=== PATIENT | female | born 1945 | race Caucasian/White ===

== ENCOUNTER → 2024-01-24 12:56 | Outpatient (REF) | payer OTHER, SELFPAY | LOC: DHCBC HW 12:56 | PROVIDERS: ATTENDING PHYSICIAN Nurse Practitioner; FAMILY PHYSICIAN Internal Medicine | DX: Z95.1 Presence of aortocoronary bypass graft (principal) | CPT/HCPCS: 93306 ==

== ENCOUNTER → 2024-02-20 14:26 | Outpatient (REF) | payer OTHER, SELFPAY | LOC: RAD 14:26 | PROVIDERS: ATTENDING PHYSICIAN Nurse Practitioner | DX: I82.409 Acute embolism and thrombosis of unspecified deep veins of unspecified lower extremity (principal); R22.42 Localized swelling, mass and lump, left lower limb | CPT/HCPCS: 76882 ==

== ENCOUNTER 2025-07-04 14:37 | Emergency (ER) | payer OTHER, SELFPAY ==
[2025-07-04 14:43] VITALS: BP 143/66
--- NOTE | 2025-07-04 17:19 | ED.GENMED ---
History of Present Illness
General
Chief Complaint: DVT/Possible Blood Clot
Time Seen by Provider: 07/04/25 17:13
History of Present Illness
History of Present Illness:
79-year-old female presents to the emergency department for evaluation of left leg edema, she states that earlier this week it 'blew up'. States that the day prior to onset of symptoms she did have some tactile fevers but these have since resolved.
She also notes that she dropped an object on her left middle toe and has been bandaging it due to irritation when walking with shoes. She is able to walk without pain. It is only painful when it is palpated. Not on anticoagulants
Past History
Past History
ED Past Medical History: Cancer, Hypercholesterolemia and Other (thrombocytopenia)
ED Past Surgical History: Gynecological (Hysterectomy) and Orthopedic (Bilateral knee replacements 2 years ago)
Social History
Tobacco: Non-smoker
Alcohol: None
Living: with family
Employment: Retired
Review of Systems
Review of Systems
Allergies reviewed?: Yes
All Other Systems: ROS reviewed and negative except as documented in HPI and ROS
Phy Exam
Physical Exam
Physical Exam:
GEN: Well appearing, NAD, WDWN
HEENT: Oral mucosa moist, no scleral icterus
Cardiac: Regular rate
Lung: No respiratory distress, no tachypnea
MSK: Diffuse edema of the left lower extremity below the knee circumferential erythema extending from the ankle to the mid calf. There is mild edema of the left foot but no overt erythema, there is a superficial wound to the left third toe with no
digital edema or purulent discharge
Skin: Good color, no pallor or jaundice, no rashes
Neuro: AO x3, moves all extremities freely
Psych: Calm, cooperative
Course
Orders/Labs/Results
Orders:
Orders
07/04/25 14:46
US Legs, Left [US Periph Venous LOWER Ext LT] Urgent
Comment:
Reason For Exam: swelling, calf pain
07/04/25 17:19
Cephalexin Monohydrate [Keflex] 500 mg PO NOW STA
Vital Signs
Initial and Last Documented VS:
Initial Vital Signs
Temp Pulse Resp BP Pulse Ox
98.3 F 95 18 143/66 95
07/04/25 14:43 07/04/25 14:43 07/04/25 14:43 07/04/25 14:43 07/04/25 14:43
Last Documented Vital Signs
Temp Pulse Resp BP Pulse Ox
98.2 F 83 16 127/50 98
07/04/25 17:34 07/04/25 17:34 07/04/25 17:34 07/04/25 17:34 07/04/25 17:34
MDM/Problems Addressed
MDM/Problems Addressed:
DVT study is negative, clinical findings compatible with acute cellulitis. She does have a wound to the left third toe however based on lack of associated erythema or purulent discharge this does not appear to be the clear source of infection.
Will start her on high-dose cephalexin however strictly encouraged to return to emergency department for IV antibiotics if worsening
*Pulse Oximetry
SaO2: 95
Oxygen Mode of Delivery: Room air
Patient hypoxic: no
*Critical Care Note
Total Time (30-74mins, 75-104mins- exclusive of procedures): Not Applicable
ED Attending Note
-
Portions of this chart may have been created with voice recognition software.� Occasional wrong word or��sound alike� substitutions may have occurred due to the inherent limitations of voice recognition software.
Discharge Plan
Departure
Patient Disposition: Home (Routine Discharge)
Date of Disposition: 07/04/25
Time of Disposition: 17:19
Patient with high blood pressure during this ER visit?: No
Discharge Problem:
Cellulitis of left leg
Instructions: Cellulitis (Skin Infection), Adult (DC)
Prescriptions:
New
cephalexin 500 mg capsule
500 mg PO QID 7 Days Qty: 28 0RF
No Action
furosemide [Lasix] 40 mg Tablet
40 mg PO DAILY
sotalol 80 mg Tablet
80 mg PO BID
sucralfate [Carafate] 1 gram Tablet
1 g PO AC
ferrous sulfate 325 mg (65 mg iron) Tablet
325 mg PO DAILY
warfarin 2 mg Tablet
6 mg PO QPM
metoprolol succinate [Toprol XL] 25 mg Tablet Extended Release 24 Hr
12.5 mg PO BID
rosuvastatin [Crestor] 10 mg Tablet
10 mg PO DAILY
oseltamivir 75 mg Capsule
75 mg PO BID Qty: 8 0RF
dexamethasone 6 mg tablet
6 mg PO DAILY Qty: 8 0RF
Interventions
Interventions:
*Risk Screen - Suicide Last Done: 07/04/25 14:43
*Nursing Disposition Last Done: 07/04/25 17:34
ED-Peripheral Vascular Assessment Last Done: 07/04/25 17:27
ED-Skin Assessment Last Done: 07/04/25 17:27
Discharge Date and Time
Discharge Date/Time: 07/04/25 17:36
Print Language: PORTUGUESE
[2025-07-04] MEDS: KEFLEX 500 MG PO (17:30)
[2025-07-04 17:34] VITALS: BP 127/50
== END 2025-07-04 17:36 | disposition home or self-care (01) ==
LOC: EMR 14:37
PROVIDERS: EMERGENCY PHYSICIAN Emergency Medicine; FAMILY PHYSICIAN Internal Medicine
DX: L03.116 Cellulitis of left lower limb (principal); E78.00 Pure hypercholesterolemia, unspecified; M79.605 Pain in left leg
CPT/HCPCS: 99284; 93971

== ENCOUNTER 2025-07-15 03:34 | Inpatient (IN) | payer OTHER, SELFPAY ==
[2025-07-14 20:42] VITALS: BP 149/84
[2025-07-14 21:01] VITALS: BP 119/57
[2025-07-14 21:09] LABS: Hematocrit 33.8 % (37.0-47.0); Hemoglobin 11.3 g/dL (12.0-16.0); Mean Corp Hgb Conc. 33.4 g/dL (33.0-37.0); Mean Corpuscular Volume 90.6 fL (81.0-99.0); Nucleated Red Blood Cells % 0 %; Platelet Count 103 10^3/uL (130-400); Red Cell Dist. Width 14.0 % (11.5-14.5)
[2025-07-14 21:18] LABS: ALT (SGPT) 16 U/L (0-35); AST (SGOT) 32 U/L (14-36); Albumin 3.7 g/dl (3.5-5.0); Alkaline Phosphatase 96 U/L (38-126); Blood Urea Nitrogen 17 mg/dl (7-17); Calcium 8.9 mg/dl (8.4-10.2); Carbon Dioxide 22 mmol/L (22-30); Chloride 108 mmol/L (98-107); Estimated Creatinine Clearance 71 ml/min; Glucose 102 mg/dl (70-99); Potassium 4.1 mmol/L (3.5-5.1); Sodium 137 mmol/L (135-145); Total Protein 7.0 g/dl (6.3-8.2); eGFR > 60.00
[2025-07-14 21:20] LABS: INR 4.13; PT 39.5 Sec (11.4-14.6)
[2025-07-14 21:21] LABS: APTT 61.7 Sec (23.4-35.0)
[2025-07-14 22:00] VITALS: BP 136/56
[2025-07-14 23:00] VITALS: BP 137/55
[2025-07-14 23:45] VITALS: BP 135/53
[2025-07-15] VITALS (9 sets, daily range): BP systolic 90–158; BP diastolic 46–76; BMI 28.0
[2025-07-15] MEDS: NSS 500 IV (01:16)
[2025-07-15] MEDS: PROTONIX IV 80 MG IV (01:17)
--- NOTE | 2025-07-15 01:51 | ED.GENMED ---
History of Present Illness
General
Chief Complaint: Rectal Bleeding
Source: patient
Exam Limitations: none
Time Seen by Provider: 07/14/25 23:45
Nursing documentation reviewed up to this point in time: agreed with
History of Present Illness
History of Present Illness:
Patient with history of colon cancer, colon resection and subsequent colostomy bag, presents to ED after noting 'black stool content' inside her colostomy bag, which has never occurred previously. Patient does take Coumadin. In addition, per
patient and caregiver, patient has had stool coming out of her rectum intermittently since most recent colonoscopy at [facility]. Denies dizziness or weakness. Denies shortness of breath. Denies trauma. Denies recent change in medications or diet.
Past History
Past History
ED Past Medical History: Cancer, Hypercholesterolemia and Other (thrombocytopenia)
ED Past Surgical History: Gynecological (Hysterectomy) and Orthopedic (Bilateral knee replacements 2 years ago)
Social History
Tobacco: Non-smoker
Alcohol: None
Living: with family
Employment: Retired
Review of Systems
Review of Systems
Allergies reviewed?: Yes
All Other Systems: ROS reviewed and negative except as documented in HPI and ROS
Constitutional: Reports no symptoms; Denies fever
Respiratory: Reports no symptoms; Denies trouble breathing
Cardiac: Reports no symptoms
ABD/GI: Reports black stools; Denies abdominal pain or vomiting
Musculoskeletal: Reports no symptoms
Skin: Reports no symptoms
Neurological: Reports no symptoms
Phy Exam
Physical Exam
Physical Exam:
Physical Exam
General: mild distress, not acutely ill. afebrile
Head: nc/at. eomi
Neck: supple. no meningeal signs.
Heart: s1/s2 regular rate and rhythm
Lungs: no acute respiratory distress. clear bilaterally
Abdomen: normal bowel sounds. not tender. rectal exam (FAUSTO Weiss, at bedside): minimal dark brown stool, heme positive
Neuro: alert and oriented x 3. no focal neurological deficits
Skin: no rash
Psychiatric: well kept. interactive and cooperative
Extremities: no edema. no calf tenderness.
Course
Orders/Labs/Results
Orders:
Orders
07/14/25 20:49
Cardiac Monitoring- Treatment ONCE
O2 Therapy [RESP] Urgent
Titrate/Wean O2 to maintain O2 sat greater than (%): 93
Special Instructions: MAINTAIN CONTINOUS O2 SATS > OR = 93%
Pulse Ox/spot Check [RESP] Urgent
Quantity: 1
Special Instructions: ON ROOM AIR
07/14/25 20:51
Type+Screen Urgent
Complete Blood Count/With Diff Urgent
Comprehensive Metabolic Panel Urgent
PTT Urgent
Prothrombin Time Urgent
07/15/25 00:57
IV Insert/Care/Rem.- Treatment PRN
Pantoprazole 80 mg/100 ml Nss [Protonix] 80 mg in 100 ml IV NOW
Pantoprazole [Protonix IV] 80 mg IV NOW STA
07/15/25 00:58
0.9% Sodium Chloride 500 ml [Nss] 500 ml IV BOLUS
07/15/25 03:13
Admit/Transfer Patient As Directed
Co-Sign Provider:
Level of Care: Inpatient admission
Assign to:: Telemetry
Physician / Group: Camacho
Diagnosis: GI Bleed
Reason for Telemetry: Arrhythmia
Date to Stop Telemetry: 07/18/25
Time to Stop Telemetry: 11:00
Reason for Hospitalization: GI Bleed
Expected length of stay greater than two midnights?: Yes
ELOS- Estimated Length of Stay in days: 2
I certify the patient meets the requirements for IP care: Yes
PRN Pain Medication Management As Directed
May give lesser potent ordered pain med per pt: Yes
preference::
Protocol:: Medication orders for pain may be administered in a
manner that supports deferring to patient preference
when the pt is:
- Requesting an ordered lesser potent pain medication.
Least to most potent pain medications are defined
as: acetaminophen < NSAID < tramadol < opioids
(morphine, oxycodone, hydromorphone).
- Requesting a lesser dose of the same medication IF
ORDERED.
- Requesting a less intrusive route of administration
if both routes are prescribed by the provider (PO <
IV).
07/15/25 03:14
Code Status As Directed
Resuscitation Status: Full Code
07/15/25 04:07
0.9% Sodium Chloride 1000 ml [Nss] 1,000 ml IV 100 mls/hr
Acetaminophen [Tylenol] 650 mg PO Q4HPRN PRN
07/15/25 04:07
Consult Notification Routine
Specialty to Notify: Gastroenterology
GASTROINTESTINAL CONSULT Routine
Consulting Provider: Ana Farley
Was physician already notified: No
Reason for consult: GI Bleed
Activity As Directed
Activity Level: Bedrest
I/O [Intake/ Output] As Directed
Frequency: Per unit guidelines
Ostomy Care As Directed
Pneumatic Compression Sleeves As Directed
Type: Knee high
Vital Signs As Directed
Frequency: Per unit guidelines
Weight As Directed
Frequency: Daily
Oxygen Therapy [O2 Therapy] [RESP] Routine
Titrate/Wean O2 to maintain O2 sat greater than (%): 94
DX Deep Vein Thrombosis Video Routine
07/15/25 Breakfast
NPO
Allow oral meds: Yes
Allow clear liquids: Sips of Clears
07/15/25 06:07
Basic Metabolic Panel IN AM
Complete Blood Count/No Diff IN AM
Prothrombin Time IN AM
07/15/25 08:00
Metoprolol Xl [Toprol Xl] 25 mg PO BID
07/15/25 11:54
HH [H&H] Q6H
07/15/25 12:00
Pantoprazole [Protonix IV] 40 mg IV Q12H
07/15/25 18:07
HH [H&H] Q6H
07/15/25 22:07
HH [H&H] Q6H
07/16/25 06:00
Prothrombin Time IN AM
07/17/25 06:00
Prothrombin Time IN AM
07/18/25 06:00
Prothrombin Time IN AM
07/18/25 11:00
DC Protocol for Telemetry ONCE
Abnormal Lab Results
07/14/25
20:51
RBC 3.73 L 10^6/uL
(4.20-5.40)
Hgb 11.3 L g/dL
(12.0-16.0)
Hct 33.8 L %
(37.0-47.0)
Plt Count 103 L 10^3/uL
(130-400)
Absolute Lymphs (auto) 0.7 L 10^3/uL
(1.2-3.4)
Neutrophils % 81.0 H %
(42.2-75.2)
Lymphocytes % 10.4 L %
(20.5-51.1)
PT 39.5 H Sec
(11.4-14.6)
APTT 61.7 H Sec
(23.4-35.0)
Chloride 108 H mmol/L
(98-107)
Glucose 102 H mg/dl
(70-99)
Total Bilirubin 1.4 H mg/dl
(0.2-1.3)
07/14/25 20:51
07/14/25 20:51
Vital Signs
Initial and Last Documented VS:
Initial Vital Signs
Temp Pulse Resp BP Pulse Ox
97.8 F 92 18 149/84 97
07/14/25 20:42 07/14/25 20:42 07/14/25 20:42 07/14/25 20:42 07/14/25 20:42
Last Documented Vital Signs
Temp Pulse Resp BP Pulse Ox
98.6 F 81 16 154/68 96
07/15/25 14:28 07/15/25 14:28 07/15/25 14:28 07/15/25 14:28 07/15/25 14:28
MDM/Problems Addressed
MDM/Problems Addressed:
Suspected upper GI bleed, with supratherapeutic INR. Otherwise patient remains afebrile, hemodynamically stable, and nontoxic-appearing.
H/H stable. Blood transfusion consent on the chart. Started on protonix gtt.
*Pulse Oximetry
SaO2: 98
Oxygen Mode of Delivery: Room air
Patient hypoxic: no
*Critical Care Note
Total Time (30-74mins, 75-104mins- exclusive of procedures): Not Applicable
ED Attending Note
-
Portions of this chart may have been created with voice recognition software.� Occasional wrong word or��sound alike� substitutions may have occurred due to the inherent limitations of voice recognition software.
Discharge Plan
Departure
Patient Disposition: Admit
Date of Disposition: 07/15/25
Time of Disposition: 02:03
Admit to: Telemetry
Presentation/result/management discussed w/ accepting MD/DO: Hospitalist
Discharge Problem:
GI bleed, Supratherapeutic INR
Interventions
Interventions:
*Risk Screen - Suicide Last Done: 07/14/25 20:42
*General Assessment Last Done: 07/14/25 20:42
*Neglect/Abuse Screening Last Done: 07/14/25 20:42
*ED- Fall Risk Assessment Last Done: 07/14/25 20:42
*ED COVID-19 Vaccine History Last Done: 07/14/25 20:42
*Nursing Disposition Last Done: 07/15/25 04:04
PX-Jqyvbb-Fyeirkhvze Assessment Last Done: 07/14/25 21:00
ED- Cardiac Assessment Last Done: 07/14/25 21:00
ED- Pulmonary Assessment Last Done: 07/14/25 21:00
Discharge Date and Time
Discharge Date/Time: 07/15/25 04:05
[2025-07-15] MEDS: PROTONIX 100 IV (01:56)
--- NOTE | 2025-07-15 03:16 | HPS.HSE ---
Family Physician
-
Family Physician: Yomi Ulrich
Chief Complaint
-
Black Stool
History of Present Illness
Patient is a 79y F with PMH significant for rectal cancer s/p surgery, chemo and XRT who presents to ED complaining of black stool in ostomy and per rectum for the past two days. Patient states that she initially noted a small amount of black
stool per rectum on Monday. She typically does not pass stool at all per rectum. She checked her ostomy and stool within was also loose and black. She denies any abdominal pain, N/V, lightheadedness, dizziness, dyspnea, etc. Patient had a second
episode of black stool per rectum today and stool in ostomy continued to be dark-appearing. She presented to the ED for further evaluation.
Patient is on Coumadin for A-Fib and took her last dose on Monday.
Patient was prescribed cephalexin for suspected cellulitis last week. She states that she took a single dose and then stopped because she 'did not like it'. The LLE discomfort / redness that she initially complained of at that time has since
improved.
Medical History
Past Medical History
Past Medical History: Reports Other
Additional Past Medical History:
Rectal Cancer s/p Surgery, Chemo, XRT (2021)
Paroxysmal Atrial Fibrillation
Chronic Thrombocytopenia
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
Aortic Stenosis
ASCVD
Skin Cancer
Past Surgical History: Reports Other
Additional Past Surgical History:
Partial Colectomy / Ileostomy Formation (2021)
R ACW Chemoport
CABG x 1
[facility]
Bilateral TKA
Mohs Surgery
Social History
Tobacco: Former Smoker (Quit smoking in 2012.)
Alcohol: None
Drug: None
Family History
Family History: Not pertinent
Allergies / Home Medications
Allergies reflects when Allergies were last updated in [facility].
Home Medications with original date entered in [facility]
Allergy/Medication List:
Allergies
Allergy/AdvReac Type Severity Reaction Status Date / Time
adhesive Allergy itches Verified 07/04/25 14:43
Home Medications
metoprolol succinate 25 mg tablet,extended release 24 hr 25 mg PO BID 07/15/25
rosuvastatin 10 mg tablet 10 mg PO DAILY 07/15/25
warfarin 2 mg tablet 2 mg PO . DIRECTED 07/15/25
Review of Systems
-
History Source: Patient
A 12 point ROS was completed and negative except as noted: Yes
Constitutional: Denies Fever, Fatigue or Chills
Respiratory: Denies Cough or Trouble Breathing
Cardiac: Denies Chest Pain or Palpitations
Abdomen/GI: Reports Black Stools; Denies Abdominal Pain, Nausea or Vomiting
Musculoskeletal: Reports Edema (chronic)
Neurological: Denies Dizzy or Headache
Psych: Denies Depression or Anxiety
Physical Exam
Vital Signs
Vital Signs
Temp Pulse Resp BP Pulse Ox
97.8 F 72 18 129/46 97
07/14/25 20:42 07/15/25 02:57 07/15/25 02:57 07/15/25 02:00 07/15/25 02:45
Physical Exam
General: Other (79y F in no acute distress.)
HEENT: Moist mucous membranes and PERRLA
Respiratory: Clear; No Wheezes or Rales
Cardiac: S1/S2, Regular Rhythm and Murmur (II/ VANESSA)
GI: Soft, Non Tender, Non Distended, Normal Bowel Sounds and Other (R sided ostomy in place with soft, non-tender parastomal hernia. Opaque device with gas, no significant stool contents appreciated.)
Musculoskeletal: No Clubbing, No Cyanosis and Other (Chronic, brawny bilateral LE edema. Mild erythema. No tenderness.)
Neuro: AO x 3
Laboratory Results
-
07/14/25 20:51
07/14/25 20:51
Laboratory Results
PT 39.5 Sec (11.4-14.6) H 07/14/25 20:51
INR 4.13 07/14/25 20:51
APTT 61.7 Sec (23.4-35.0) H 07/14/25 20:51
Total Bilirubin 1.4 mg/dl (0.2-1.3) H 07/14/25 20:51
AST 32 U/L (14-36) 07/14/25 20:51
ALT 16 U/L (0-35) 07/14/25 20:51
Alkaline Phosphatase 96 U/L (38-126) 07/14/25 20:51
Impression/Plan
-
A/P: Patient is a 79y F with PMH significant for A-Fib, aortic stenosis and history of rectal cancer who presents to ED complaining of black stool per rectum and in ostomy x 2 days.
GI Bleeding
- Admit for further evaluation and treatment.
- Melena noted in ostomy and per rectum - rectal stool output quite unusual per patient.
- BP stable. No lightheadedness, dizziness, dyspnea. No abdominal pain, N/V.
- IV PPI BID, IVF support.
- Follow serial H&H and transfuse if needed.
- GI evaluation for additional recommendations / possible endoscopic examination.
- Follow for any new / worsening bleeding.
- Hold Coumadin (see below).
Coumadin Coagulopathy
- INR today is 4.13. ? elevated due to abx use (though patient states she took only one dose).
- Hold Coumadin. Follow INR daily.
- Vit K if recurrent bleeding or persistent INR elevation off of Coumadin.
Paroxysmal Atrial Fibrillation
- Stable. Continue metoprolol with holding parameters.
- Hold Coumadin as noted above.
ASCVD
Aortic Stenosis
- Stable. s/p CABG x 1 in the past. No chest pain / dyspnea.
- s/p tissue AVR.
History of Rectal Cancer
- s/p surgery, chemo and XT at [place] in 2021. Details are not entirely clear.
- Chest wall port remains in place - though not used in quite some time.
DVT Prophylaxis: SCDs
Code Status: Full
--- NOTE | 2025-07-15 04:25 | PTCARENOTE ---
Pt arrived onto floor @0425. Pt AAOx3 and able to walk into room with minimal assistance. Pt with no complaints of pain or SOB at this time. Pt oriented to room and call hauser; will continue to monitor
[2025-07-15] MEDS: NSS 1000 IV (05:52)
[2025-07-15] MEDS: BENADRYL 12.5 MG IV (06:18)
[2025-07-15 06:52] LABS: INR 3.99; PT 38.5 Sec (11.4-14.6)
[2025-07-15 07:11] LABS: Blood Urea Nitrogen 15 mg/dl (7-17); Calcium 8.2 mg/dl (8.4-10.2); Carbon Dioxide 25 mmol/L (22-30); Chloride 110 mmol/L (98-107); Estimated Creatinine Clearance 69 ml/min; Glucose 85 mg/dl (70-99); Potassium 4.0 mmol/L (3.5-5.1); Sodium 139 mmol/L (135-145); eGFR > 60.00
[2025-07-15 07:34] LABS: Hematocrit 30.7 % (37.0-47.0); Hemoglobin 10.3 g/dL (12.0-16.0); Mean Corp Hgb Conc. 33.6 g/dL (33.0-37.0); Mean Corpuscular Volume 89.8 fL (81.0-99.0); Red Cell Dist. Width 14.0 % (11.5-14.5)
--- NOTE | 2025-07-15 08:04 | CON.GI ---
Addendum entered and electronically signed by Ana Navarro Do, MD 07/15/25 10:39:
I saw and evaluated the patient. I reviewed the resident�s note and agree with findings and plan as documented in the resident�s note.
Nga is a 79yo W lives independently with remote h/o Stage 1 rectal cancer diagnosed at age 65 s/p chemoXRT then colectomy with ileostomy at [facility] 2012, cirrhosis and bioprosthetic AVR on coumadin who presents for black blood in stoma output
that started Monday. Reports normal stoma output. She denies any triggers. There is no associated abd pain, reflux, heartburn, N/V, change in diet or new meds. Her INR goal is 2.5-3.5 but recently running slightly higher. Denies NSAID use.
Vitals stable not tachy or hypotensive. Exam pale appearing, NTTP, RLQ stoma with stool, RRR. Labs show mild pancytopenia. Hbg baseline 12 on admission 11 to 10.3 today. EGD/colon done last 5yr ago at [facility]. Records not available
Impression
- Black stools in ostomy with anemia
Ddx includes PUD, stoma irritation or portal HTN gastropathy or GAVE
Variceal bleeding is consideration but less likely given her hemodynamic stability
- Supratherapeutic INR
- Mild pancytopenia
- Cirrhosis
Unclear etiology
- H/o Stage I rectal ca s/p chemoXRT followed by colectomy with ileostomy at [facility]
- Bioprosthetic AVR
- CABG
- pAfib
Recommendations
- Adv to CLD
- C/w protonix gtt
- Serial H/H
- 2 large bore IV
- Monitor stool output
- Add on iron panel and vit B12,folate
- Records request from [facility] for her last EGD/colonosocpy there 5yrs ago
- Hold coumadin goal INR <1.7 for EGD and enteroscopy through stoma. If INR <2.5 and she is high cardiac risk can consider heparin gtt to bridge while inpatient
Will follow with you
Original Note:
Consultation
-
Date/Time Consultation Requested: 07/15/2025
Date/Time Consultation Performed: 07/15/2025
Requesting Provider: Cosmo Sauer
Performing Provider: Ana Farley; Federico Taylor
Reason for Consultation: GI bleed
Medical History
Chief Complaint / HPI
Chief Complaint: GI bleed
History of Present Illness:
HPI
79 yo F PMH of rectal cancer s/p surgery with R ostomy, chemotherapy, radiotherapy (2013 @ [facility]) p/w black stool with some red blood in ostomy and per rectum for 2 days duration.
She also noticed some red-mixed stool per rectum and ostomy yesterday.
She reports that she does not typically have any output per rectum. This has never happened before.
She denies any abdominal pain. She was watching TV when this occurred.
She denies nausea or vomiting
she denies dizziness. She denies any new dyspnea (she reports at baseline that she is a little short of breath with walking around due to hernia near ostomy bag and aortic valve replacement).
She recently had LLE cellulitis ~1 week ago and took 2 pills of cephalexin, which she stopped on her own because she experienced diarrhea (by increased ostomy output).
She otherwise denies any changes in bowel habits, travel.
During her admission, she has kept NPO and she says her last meal was Monday evening. She has not noticed significant ostomy output during her admission.
In the ED, heme-occult test was positive per ED documentation. Patient declined a repeat heme-occult but is okay with inspection and palpation of perianal region. FAUSTO riley
She reports being told that she has a rectovaginal fistula, but denies any vaginal discharge or bleeding.
Other ROS: she denies chest pain, acute dyspnea, headaches, focal weakness.
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
PSH: partial colectomy and ileostomy ~2012. Mohs procedure, CABG procedure, bilateral knee replacement.
She follows with [facility] oncology but reports that 'it has been a few years'
Past Medical History
Past Medical History: Arrhythmias, Cancer and Other (see HPI)
Past Surgical History: Bowel Resection, Cardiac, Orthopedic and Other (see HPI)
Social History
Tobacco: Former Smoker (quit in 2012)
Alcohol: Former (quit in 2012)
Drug: None
Living: Alone
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
Family History
Family History: Cancer (mother: skin cancer, ~40 years ago)
Allergies / Home Medications
Allergy/AdvReac Type Severity Reaction Status Date / Time
adhesive Allergy itches Verified 07/04/25 14:43
�Medication �Instructions �Recorded
metoprolol succinate 25 mg 25 mg PO BID 07/15/25
tablet,extended release 24 hr
rosuvastatin 10 mg tablet 10 mg PO DAILY 07/15/25
warfarin 2 mg tablet 2 mg PO . DIRECTED 07/15/25
Review of Systems
-
History Source: Patient
Constitutional: Reports No Symptoms
EENT: Reports No Symptoms
Respiratory: Reports Trouble Breathing (no new dyspnea, at baseline she reports some dyspnea when walking or moving quickly)
Cardiac: Reports No Symptoms
Abdomen/GI: Reports Bloody Stools, Black Stools and Other (denies nausea, vomiting, denies abdominal pain)
: Reports No Symptoms
Skin: Reports Other (some LLE pain resolving cellulitis)
Neurological: Reports No Symptoms and Other (denies dizziness)
Endocrine: Reports No Symptoms
Hematologic/Lymphatic: Reports No Symptoms
Vital Signs
Temp Pulse Resp BP Pulse Ox
98.2 F 90 16 158/76 97
07/15/25 07:59 07/15/25 07:59 07/15/25 07:59 07/15/25 07:59 07/15/25 07:59
Physical Exam
Exam
General: No Apparent Distress
HEENT: Anicteric
Respiratory: Clear
Cardiac: Regular Rhythm and Murmur (holosystolic murmur loudest near left parasternum; no radiation to carotids appreciable on my exam)
GI: Non Tender, Normal Bowel Sounds and Other (R ostomy bag present )
Rectal: Other (Patient was heme positive in ED per documentation; she declined a repeat hemo-occult test to me; she consented to an inspection and palpation of perianal region: possible some dried redness visualized )
Genito-urinary: No Costovertebral Tender
Musculoskeletal: Other (some redness on LLE, attributable to cellulitis last week. No tenderness to palpation of calves)
Skin: Warm
Neuro: AO x 3, No Motor Deficits and Other (no asterixis on my exam)
Psych: Calm
Results
VS:
143/66; HR 93; RR 16; T 97.8; SpO2 97%
WBC 3.7 10^3/uL (4.8-10.8) L 07/15/25 06:07
Hgb 10.3 g/dL (12.0-16.0) L 07/15/25 06:07
Hgb Cancelled 07/15/25 06:07
Hct 30.7 % (37.0-47.0) L 07/15/25 06:07
Hct Cancelled 07/15/25 06:07
MCV 89.8 fL (81.0-99.0) 07/15/25 06:07
Plt Count 103 10^3/uL (130-400) L 07/14/25 20:51
Absolute Neuts (auto) 5.1 10^3/uL (1.4-6.5) 07/14/25 20:51
PT 38.5 Sec (11.4-14.6) H 07/15/25 06:07
INR 3.99 07/15/25 06:07
APTT 61.7 Sec (23.4-35.0) H 07/14/25 20:51
Sodium 139 mmol/L (135-145) 07/15/25 06:07
Potassium 4.0 mmol/L (3.5-5.1) 07/15/25 06:07
Chloride 110 mmol/L (98-107) H 07/15/25 06:07
Carbon Dioxide 25 mmol/L (22-30) 07/15/25 06:07
BUN 15 mg/dl (7-17) 07/15/25 06:07
Creatinine 0.6 mg/dL (0.6-1.0) 07/15/25 06:07
Calcium 8.2 mg/dl (8.4-10.2) L 07/15/25 06:07
Total Bilirubin 1.4 mg/dl (0.2-1.3) H 07/14/25 20:51
AST 32 U/L (14-36) 07/14/25 20:51
ALT 16 U/L (0-35) 07/14/25 20:51
Alkaline Phosphatase 96 U/L (38-126) 07/14/25 20:51
Diagnostic Image Results:
Prior GI Procedures:
EGD:
12/06/2018 - grade 1 varices at GE junction
Colonoscopy:
02/13/2013 -
Impression: - Internal hemorrhoids.
- Diverticulosis
- Likely malignant tumor in the rectum. Biopsied.
Path report: Mas rectum: Adenocarcinoma, well to moderately differentiated arising in a severely dysplastic villous adenoma, fragments of
around 2012, she had partial colectomy + ostomy with chemo and radiation at [facility]. She was told around this time she has a rectovaginal fistula that did not require surgical intervention. She was told that the ostomy is connected superior to the
rectovaginal fistula, the rectum is a closed loop.
Assessment / Plan
-
In summary, 79 yo F PMH of rectal adenocarcinoma s/p partial colectomy with R ostomy bag (2012) who is p/w melena and hematochezia for 2 days duration.
# Melena, hematochezia
- VS stable, BP within normal limits, not tachycardic
- she is able to ambulate to the bathroom with no issues; denies dizziness
- Heme positive rectal exam per ED documentation
- Hgb trend is 11.3 -> 10.3; likely dilutional since all 3 cell lines had decreased and she is receiving 100mL/hr NS.
- The ddx for melena and hematochezia is broad and includes UGIB and LGIB etiologies: malignancy, varices, coagulopathy-induced bleeding. Other etiologies, diverticular bleed, ulcer, infectious colitis.
- For this patient, most likely explanation may be related to a combination of malignancy (possible recurrence), variceal bleeding (documented varcies in 2019 EGD, and cirrhosis) and/or coagulopathy (INR of 4, where goal is likely 2-3).
- Her elevated INR may be also related to ongoing cirrhosis (hepatic dysfunction, warfarin metabolized by liver); agree with holding warfarin given supratherapeutic INR.
- Of note, the melena and hematochezia per rectum, when she does not typically experience may suggest recurrence of malignancy and/or new fistula formation?
- She did also take recent antibiotics for cellulitis (though only 2 pills), and experienced diarrhea, which has resolved per her because she stopped taking the pills after 1 day. The short duration of abx and absence of ongoing diarrhea points away
from a possible c.diff.
- No travel or new diets point away from a possible infectious etiology of hematochezia.
- An ulcer etiology would likely present with abdominal pain, which she denies.
Plan:
- Recommendations are not final until discussed with Dr. Farley, GI attg
- Trend H&H
- Trend INR
- Continue IV pantoprazole
- Continue IV normal saline, ensure 2x IV access
- Colonoscopy (via ostomy?) and EGD is appropriate because melena/hematochezia can point to UGIB or LGIB; however, today is day #2 for warfarin being held. Her INR is 4, above target and likely not suitable for an endoscopic intervention at this time
- For these reasons, consider adding her diet back to clear liquids, monitor ostomy/rectal stool output and any vomiting.
- In the interim, if endoscopic intervention is deemed not appropriate today, can consider a CT A/P w oral and IV contrast to visualize gastrointestinal tract given surgical history and new rectal stool output (Cr is 0.6).
-
-
Thank you for consultation and allowing me to participate in the patient's care. Please call the product demonstrator GI physician during the after hours with any questions or concerns.
[2025-07-15 09:01] LABS: Platelet Count 86 10^3/uL (130-400)
[2025-07-15] MEDS: TOPROL XL 25 MG PO ×2 (09:15→20:23)
--- NOTE | 2025-07-15 11:05 | CM ---
CM reviewed chart, patient seen bedside, initial assessment completed.
Patient is a 79 year old Female with PMH significant for rectal cancer s/p surgery, chemo and XRT who presents to ED complaining of black stool in ostomy and per rectum for the past two days.
Patient resides independently in a one level home, no steps to enter. Patient denies use of DME, reports current with [facility], will send [facility] referral in [facility]. Patient denies SNF hx. PCP Yomi Ulrich, Pharmacy [facility], confirms
prescription coverage. Patient denies insecurities at home. CM will continue to follow for all discharge planning needs.
Plan; home with [facility]
[2025-07-15] MEDS: CITROMA 300 ML PO (11:12)
[2025-07-15] MEDS: PROTONIX IV 40 MG IV (11:26)
[2025-07-15 11:33] LABS: Iron 78 ug/dl (37-170)
[2025-07-15 11:42] LABS: Total Iron Binding Capacity 289 ug/dl (265-497)
[2025-07-15 12:08] LABS: Ferritin 42.9 ng/ml (11.1-264.0)
[2025-07-15 12:09] LABS: Hematocrit 30.9 % (37.0-47.0); Hemoglobin 10.6 g/dL (12.0-16.0)
[2025-07-15 12:39] LABS: Folate 16.6 ng/ml (2.76-20); Vitamin B12 749 pg/ml (239-931)
--- NOTE | 2025-07-15 14:11 | W.PN.HOSP.TC ---
Today's Communication/Plan
-
Assessment / Plan
Assessment / Plan
General: No Apparent Distress, Comfortable and Conversant
HEENT: NormoCephalic, Moist mucous membranes, Atraumatic
Respiratory: Clear and Non Labored Respirations
Cardiac: S1/S2 and Regular Rhythm; No Rub or Gallop
GI: Soft, Non Tender, ostomy in place with gas but no stool output
Musculoskeletal: No Edema, no deformity
Skin: Warm and dry
: NO Naylor
Neuro: Awake, Alert, Nonfocal/grossly intact
Psych: Calm and Intact Judgment/Insight
Ms. Chamberlain is a 79-year-old female with medical history of stage I rectal cancer (diagnosed at age 65, status post chemoradiation, colectomy end ileostomy at [place] 2012) cirrhosis (secondary to radiation), paroxysmal A-fib (on warfarin),
bioprosthetic AVR, CAD (status post CABG), and thrombocytopenia who presented with dark stools from her ostomy and per rectum for 2 days prior to arrival. She does not usually pass stool per rectum but when she did notice that she also noticed
black stools in her ostomy. She denies pain or dizziness. Her initial hemoglobin was 11.3 which is slightly below her baseline of around 13. Her INR was supratherapeutic at 4.13. She has remained hemodynamically stable. She has been admitted
for further evaluation and management.
Suspected GI bleeding:
- Dark stools from ostomy and rectum, hemoglobin slightly below baseline
- Clear liquid diet for now
- Holding warfarin due to supratherapeutic INR of 4.13
- IV PPI twice daily
- Monitor hemoglobin levels, transfuse if needed for hemoglobin less than 7.0 or brisk bleeding
- GI following, will plan EGD enteroscopy through stoma once INR less than 1.7
Paroxysmal A-fib:
- Currently rate controlled continue home metoprolol succinate 25 mg p.o. twice daily
- Holding home warfarin due to supratherapeutic INR and suspected GI bleeding
DVT prophylaxis: SCDs while holding warfarin
CODE STATUS: Full code
Total time spent on today's encounter was 54 minutes
Anticipated Discharge: > 48 hours
Subjective/Interval History
-
Date of Service: July 15, 2025
Patient was seen and examined at bedside this morning. No discomfort. Hemodynamic stable. Holding warfarin due to black stools and ostomy with anemia.
Objective Data
-
Labs:
Laboratory Results
07/15/25 07/15/25 07/15/25
06:07 06:07 06:07
WBC 3.7 L
Hgb Cancelled 10.3 L
Hct Cancelled 30.7 L
Plt Count 86 L
PT 38.5 H
INR 3.99
Sodium 139
Potassium 4.0
Chloride 110 H
Carbon Dioxide 25
BUN 15
Creatinine 0.6
Glucose 85
Calcium 8.2 L
07/15/25 07/15/25 07/16/25
11:54 18:07 00:07
WBC
Hgb 10.6 L Pending Pending
Hct 30.9 L Pending Pending
Plt Count
PT
INR
Sodium
Potassium
Chloride
Carbon Dioxide
BUN
Creatinine
Glucose
Calcium
Vital Signs:
Vital Signs
Temp Pulse Resp BP Pulse Ox
98.2 F 90 16 158/76 97
07/15/25 07:59 07/15/25 09:15 07/15/25 07:59 07/15/25 09:15 07/15/25 07:59
Review of Systems
-
History Source: Patient
All other systems: Reviewed and negative
Physical Exam
-
General: No Apparent Distress
[2025-07-15] MEDS: NSS IV (14:41)
--- NOTE | 2025-07-15 14:42 | PTCARENOTE ---
patient drinking magnesium citrate thus, putting out more output from ostomy. per patient, stool is black.
[2025-07-15 20:18] LABS: Hematocrit 33.2 % (37.0-47.0); Hemoglobin 11.2 g/dL (12.0-16.0)
[2025-07-16] VITALS (7 sets, daily range): BP systolic 104–138; BP diastolic 50–62; BMI 27.7
[2025-07-16] MEDS: PROTONIX IV 40 MG IV ×3 (00:02→23:46)
[2025-07-16] MEDS: TOPROL XL 25 MG PO ×2 (08:16→20:42)
[2025-07-16 08:42] LABS: Hematocrit 32.2 % (37.0-47.0); Hemoglobin 10.6 g/dL (12.0-16.0); Mean Corp Hgb Conc. 32.9 g/dL (33.0-37.0); Mean Corpuscular Volume 90.2 fL (81.0-99.0); Nucleated Red Blood Cells % 0 %; Platelet Count 104 10^3/uL (130-400); Red Cell Dist. Width 14.3 % (11.5-14.5)
[2025-07-16 08:46] LABS: INR 3.36; PT 34.3 Sec (11.4-14.6)
--- NOTE | 2025-07-16 13:56 | W.PN.HOSP.TC ---
Today's Communication/Plan
-
Assessment / Plan
Assessment / Plan
General: No Apparent Distress, Comfortable and Conversant
HEENT: NormoCephalic, Moist mucous membranes, Atraumatic
Respiratory: Clear and Non Labored Respirations
Cardiac: S1/S2 and Regular Rhythm; No Rub or Gallop
GI: Soft, Non Tender, ostomy in place with gas but no stool output
Musculoskeletal: No Edema, no deformity
Skin: Warm and dry
: NO Naylor
Neuro: Awake, Alert, Nonfocal/grossly intact
Psych: Calm and Intact Judgment/Insight
Ms. Chamberlain is a 79-year-old female with medical history of stage I rectal cancer (diagnosed at age 65, status post chemoradiation, colectomy end ileostomy at [place] 2012) cirrhosis (secondary to radiation), paroxysmal A-fib (on warfarin),
bioprosthetic AVR, CAD (status post CABG), and thrombocytopenia who presented with dark stools from her ostomy and per rectum for 2 days prior to arrival. She does not usually pass stool per rectum but when she did notice that she also noticed
black stools in her ostomy. She denies pain or dizziness. Her initial hemoglobin was 11.3 which is slightly below her baseline of around 13. Her INR was supratherapeutic at 4.13. She has remained hemodynamically stable. She has been admitted
for further evaluation and management.
Suspected GI bleeding:
- Dark stools from ostomy and rectum, hemoglobin slightly below baseline
- Holding warfarin due to supratherapeutic INR of 4.13, improved today to 3.3
- Hemoglobin dropped slightly to 10.6
- IV PPI twice daily
- Monitor hemoglobin levels, transfuse if needed for hemoglobin less than 7.0 or brisk bleeding
- GI following, will plan EGD enteroscopy through stoma once INR less than 1.7
- Remains hemodynamically stable, no abdominal discomfort
Paroxysmal A-fib:
- Currently rate controlled continue home metoprolol succinate 25 mg p.o. twice daily
- Holding home warfarin due to supratherapeutic INR and suspected GI bleeding
DVT prophylaxis: SCDs while holding warfarin
CODE STATUS: Full code
Total time spent on today's encounter was 45 minutes
Anticipated Discharge: 24 - 48 hours
Subjective/Interval History
-
Date of Service: July 16, 2025
Patient was seen and examined at bedside this morning. No abdominal pain and no further dark stools per rectum or ostomy. INR still supratherapeutic.
Objective Data
-
Labs:
Laboratory Results
07/16/25
07:45
WBC 6.2
Hgb 10.6 L
Hct 32.2 L
Plt Count 104 L D
PT 34.3 H
INR 3.36
Vital Signs:
Vital Signs
Temp Pulse Resp BP Pulse Ox
98 F 77 18 137/62 95
07/16/25 11:59 07/16/25 11:59 07/16/25 03:55 07/16/25 11:59 07/16/25 11:59
I&O
07/15/25 07/16/25 07/17/25
06:59 06:59 06:59
Intake Total 1040 / 1040
Balance 1040 / 1040
Review of Systems
-
History Source: Patient
All other systems: Reviewed and negative
Physical Exam
-
General: No Apparent Distress
--- NOTE | 2025-07-16 14:19 | CM ---
CM following re: discharge planning.
Reviewed pt's chart, met with pt.
Per chart review, patient resides independently in a one level home, independent [employer] and pt is current with [facility].
A referral to [facility] noted - pt is accepted for services.
PT and OT evaluations pending.
[facility] discharge instructions fax: [phone]
D/C plan: most likely home with [facility] and family support.
CM will follow with discharge plan updates as hospitalization progresses
--- NOTE | 2025-07-16 16:33 | W.PN.GI.CBS2 ---
Today's Communication / Plan
-
Regular diet
NPO at DC in case INR <1.7 tomorrow for EGD/enteroscopy
Assessment / Plan
-
Nga is a 79yo W lives independently with remote h/o Stage 1 rectal cancer diagnosed at age 65 s/p chemoXRT then colectomy with ileostomy at [place] 2012, cirrhosis and bioprosthetic AVR on coumadin who presents for black blood in stoma output
that started Monday. Reports normal stoma output. She denies any triggers. There is no associated abd pain, reflux, heartburn, N/V, change in diet or new meds. Her INR goal is 2.5-3.5 but recently running slightly higher. Denies NSAID use.
EGD/colon done last 5yr ago at [place]. Records not available
Impression
- Black stools in ostomy with anemia
Ddx includes PUD, stoma irritation or portal HTN gastropathy or GAVE
Variceal bleeding is consideration but less likely given her hemodynamic stability
- Supratherapeutic INR
- Mild pancytopenia
- Cirrhosis
Unclear etiology
- H/o Stage I rectal ca s/p chemoXRT followed by colectomy with ileostomy at [place]
- Bioprosthetic AVR
- CABG
- pAfib
Recommendations
- Adv to low residue diet
- C/w protonix gtt
- Monitor stool output now per pt no longer bloody
- Records request from [facility] for her last EGD/colonosocpy there 5yrs ago
- Hold coumadin goal INR <1.7 for EGD and enteroscopy through stoma. If INR <2.5 and she is high cardiac risk can consider heparin gtt to bridge while inpatient
Will follow with you
Subjective
Subjective
Date of Service: July 16, 2025
She took mag citrate and passing brown blunt stool. No longer black. Denies abd pain or N/V
Objective
Data Reviewed
Laboratory Data:
Laboratory Results
07/16/25 07:45
07/15/25 06:07
Laboratory Results
PT 34.3 Sec (11.4-14.6) H 07/16/25 07:45
INR 3.36 07/16/25 07:45
APTT 61.7 Sec (23.4-35.0) H 07/14/25 20:51
Total Bilirubin 1.4 mg/dl (0.2-1.3) H 07/14/25 20:51
AST 32 U/L (14-36) 07/14/25 20:51
ALT 16 U/L (0-35) 07/14/25 20:51
Alkaline Phosphatase 96 U/L (38-126) 07/14/25 20:51
Vital Signs and I&O:
Vital Signs
Temp Pulse Resp BP Pulse Ox
97.6 F 74 18 121/50 97
07/16/25 15:59 07/16/25 15:59 07/16/25 03:55 07/16/25 15:59 07/16/25 15:59
I&O
07/15/25 07/16/25 07/17/25
06:59 06:59 06:59
Intake Total 1040 / 1040
Balance 1040 / 1040
Physical Exam
Physical Exam
GEN: No acute distress, conversant, pleasant
HEENT: anicteric, extraocular movements intact, clear oropharynx without exudates
GI: soft, non-distended, RLQ with stoma in place not tender to palpation, normal active bowel sounds, no hepatosplenomegaly
EXT: warm, well perfused, trace edema bilaterally
NEURO: AAOx3, non-focal
[2025-07-17 03:20] VITALS: BP 110/59
[2025-07-17 06:00] VITALS: BMI 27.6
[2025-07-17 07:30] VITALS: BP 122/56
[2025-07-17 08:08] LABS: INR 3.07; PT 32.0 Sec (11.4-14.6)
[2025-07-17 08:22] LABS: Hematocrit 30.7 % (37.0-47.0); Hemoglobin 10.2 g/dL (12.0-16.0); Mean Corp Hgb Conc. 33.2 g/dL (33.0-37.0); Mean Corpuscular Volume 92.2 fL (81.0-99.0); Nucleated Red Blood Cells % 0 %; Platelet Count 99 10^3/uL (130-400); Red Cell Dist. Width 14.3 % (11.5-14.5)
[2025-07-17] MEDS: TOPROL XL 25 MG PO (08:48)
[2025-07-17 11:25] VITALS: BP 122/49
[2025-07-17 12:04] VITALS: BP 122/49
--- NOTE | 2025-07-17 12:52 | CM ---
Patient seen at bedside
IMM explained & signed. In chart
spoke with [facility]
referral in [facility] for [facility] - accepted
PLAN: Home with [facility]
neighbor to transport
[facility] discharge instructions fax: [phone]
--- NOTE | 2025-07-17 13:13 | W.DCSUMMARY ---
Discharge Summary
Discharge Data
Date of Admission: 07/15/25
Date of Discharge: 07/17/25
Total time spent discharging patient (in min): 50
-
Pending Results: No
Hospital Course
Ms. 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
bioprosthetic AVR, CAD (status post CABG), and thrombocytopenia who presented with dark stools from her ostomy and per rectum for 2 days prior to arrival. She does not usually pass stool per rectum but when she did notice that she also noticed
black stools in her ostomy. She denied pain or dizziness. Her initial hemoglobin was 11.3 which is close to her baseline. Her INR was supratherapeutic at 4.13. She has remained hemodynamically stable. She was admitted for further evaluation and
management.
Her hemoglobin levels remained stable and she remained pain-free. Her warfarin was held for possible endoscopy. Her dark stools resolved. Her INR decreased slightly and was 3.0 on the day of discharge. Considering her hemodynamic stability and
resolution of her presenting symptoms, she has been discharged to home with home health. She will follow-up with gastroenterology in the outpatient setting for further workup and endoscopy as needed. She will be continued on Protonix twice daily
for now. Her home warfarin will be restarted at discharge. She will need close follow-up with her PCP for repeat labs to monitor her hemoglobin levels and INR.
General: No Apparent Distress, Comfortable and Conversant
HEENT: NormoCephalic, Moist mucous membranes, Atraumatic
Respiratory: Clear and Non Labored Respirations
Cardiac: S1/S2 and Regular Rhythm; No Rub or Gallop
GI: Soft, Non Tender, ostomy in place with gas but no stool output
Musculoskeletal: No Edema, no deformity
Skin: Warm and dry
: NO Naylor
Neuro: Awake, Alert, Nonfocal/grossly intact
Psych: Calm and Intact Judgment/Insight
Discharge Plan
-
Patient Disposition: Home with Home Care
Discharge Diagnosis/Procedures: Dark stools and anemia
Blood Work: Repeat labs in 1 week to monitor hemoglobin level and INR
Activity Restrictions/Additional Instructions:
Ms. 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
bioprosthetic AVR, CAD (status post CABG), and thrombocytopenia who presented with dark stools from her ostomy and per rectum for 2 days prior to arrival. She does not usually pass stool per rectum but when she did notice that she also noticed
black stools in her ostomy. She denied pain or dizziness. Her initial hemoglobin was 11.3 which is close to her baseline. Her INR was supratherapeutic at 4.13. She has remained hemodynamically stable. She was admitted for further evaluation and
management.
Her hemoglobin levels remained stable and she remained pain-free. Her warfarin was held for possible endoscopy. Her dark stools resolved. Her INR decreased slightly and was 3.0 on the day of discharge. Considering her hemodynamic stability and
resolution of her presenting symptoms, she has been discharged to home with home health. She will follow-up with gastroenterology in the outpatient setting for further workup and endoscopy as needed. She will be continued on Protonix twice daily
for now. Her home warfarin will be restarted at discharge. She will need close follow-up with her PCP for repeat labs to monitor her hemoglobin levels and INR.
Referrals:
Ana Farley MD [Active, Gastroenterology]
Yomi Ulrich MD [Family Provider, Internal Medicine]
Prescriptions:
New
pantoprazole 40 mg tablet,delayed release (DR/EC)
40 mg PO BID 30 Days Qty: 60 0RF
Continued
warfarin 2 mg tablet
2 mg PO . DIRECTED
Rx Instructions:
4mg Mo We Fr. 6mg all other days.
metoprolol succinate 25 mg tablet extended release 24 hr
25 mg PO BID
rosuvastatin 10 mg tablet
10 mg PO DAILY
Discharge Orders:
Discharge Patient (As Directed); Ordered 07/17/25
Ordered By: Kavon Olsen
Discharge Date and Time
Print Language: TURKMEN
[2025-07-17] MEDS: PROTONIX IV IV (13:46)
--- NOTE | 2025-07-17 14:30 | PTCARENOTE ---
Patient for discharge. IV removed. Tele removed. Discharge packet reviewed with patient. All questions answered. Patient awaiting ride to be discharged to home.
--- NOTE | 2025-07-17 16:10 | W.PN.GI.CBS2 ---
Today's Communication / Plan
-
D/c today
[facility] FU for GI endoscopic evaluation
Assessment / Plan
-
Nga is a 79yo W lives independently with remote h/o Stage 1 rectal cancer diagnosed at age 65 s/p chemoXRT then colectomy with ileostomy at [facility] 2013, cirrhosis and bioprosthetic AVR on coumadin who presents for black blood in stoma output
that started Monday. Reports normal stoma output. She denies any triggers. There is no associated abd pain, reflux, heartburn, N/V, change in diet or new meds. Her INR goal is 2.5-3.5 but recently running slightly higher. Denies NSAID use.
EGD/colon done last 5yr ago at [facility]. Records not available
Impression
- Black stools in ostomy with anemia
Ddx includes PUD, stoma irritation or portal HTN gastropathy or GAVE
Variceal bleeding is consideration but less likely given her hemodynamic stability
- Supratherapeutic INR
- Mild pancytopenia
- Cirrhosis
Unclear etiology
- H/o Stage I rectal ca s/p chemoXRT followed by colectomy with ileostomy at [facility]
- Bioprosthetic AVR
- CABG
- pAfib
Recommendations
- Tolerating low residue diet
- H/H stable INR still not <3
- C/w protonix
- Monitor stool output now per pt no longer bloody
- Given stability she prefers hosp d/c and will follow up at [facility] for her enteroscopy/eGD
Ok for hosp d/c today. GI will sign off
Subjective
Subjective
Date of Service: July 17, 2025
Brown stool from ostomy. Denies abd pain tolerating diet
Objective
Data Reviewed
Laboratory Data:
Laboratory Results
07/17/25 07:01
07/15/25 06:07
Laboratory Results
PT 32.0 Sec (11.4-14.6) H 07/17/25 07:01
INR 3.07 07/17/25 07:01
APTT 61.7 Sec (23.4-35.0) H 07/14/25 20:51
Total Bilirubin 1.4 mg/dl (0.2-1.3) H 07/14/25 20:51
AST 32 U/L (14-36) 07/14/25 20:51
ALT 16 U/L (0-35) 07/14/25 20:51
Alkaline Phosphatase 96 U/L (38-126) 07/14/25 20:51
Vital Signs and I&O:
Vital Signs
Temp Pulse Resp BP Pulse Ox
97.9 F 70 16 122/49 96
07/17/25 11:25 07/17/25 11:25 07/17/25 11:25 07/17/25 11:25 07/17/25 11:25
I&O
07/16/25 07/17/25 07/18/25
06:59 06:59 06:59
Intake Total 1040 / 1040 240 / 240
Balance 1040 / 1040 240 / 240
Physical Exam
Physical Exam
GEN: No acute distress, conversant, pleasant
HEENT: anicteric, extraocular movements intact, clear oropharynx without exudates
GI: soft, non-distended, not tender to palpation, RUQ with ostomy
EXT: warm, well perfused, no edema bilaterally
NEURO: AAOx3, non-focal
[2025-07-17 16:38] LABS: Hepatitis B Surface Antigen Negative (Negative)
[2025-07-17 19:59] LABS: Hepatitis C Antibody Negative (Negative)
[2025-07-17 21:37] LABS: Hepatitis A Antibody, Total Positive (Negative)
== END 2025-07-17 15:37 | disposition home health service (06) | DRG 378 ==
LOC: 4 WEST ACU 03:34
PROVIDERS: Emergency Medicine; ADMITTING PHYSICIAN Hospitalist; ATTENDING PHYSICIAN Internal Medicine; CONSULT PHYSICIAN Internal Medicine Gastroenterology; EMERGENCY PHYSICIAN Emergency Medicine; FAMILY PHYSICIAN Internal Medicine
DX: K92.2 Gastrointestinal hemorrhage, unspecified (principal); D61.818 Other pancytopenia; D68.32 Hemorrhagic disorder due to extrinsic circulating anticoagulants; K92.1 Melena; Z85.048 Personal history of other malignant neoplasm of rectum, rectosigmoid junction, and anus; I25.10 Atherosclerotic heart disease of native coronary artery without angina pectoris; Z95.1 Presence of aortocoronary bypass graft; Z92.3 Personal history of irradiation; Z95.3 Presence of xenogenic heart valve; Z79.01 Long term (current) use of anticoagulants; I48.0 Paroxysmal atrial fibrillation; K74.69 Other cirrhosis of liver; T45.1X5A Adverse effect of antineoplastic and immunosuppressive drugs, initial encounter; T45.515A Adverse effect of anticoagulants, initial encounter; Z93.3 Colostomy status; Z80.8 Family history of malignant neoplasm of other organs or systems; Z85.828 Personal history of other malignant neoplasm of skin; E78.00 Pure hypercholesterolemia, unspecified; I35.0 Nonrheumatic aortic (valve) stenosis; Z87.891 Personal history of nicotine dependence; Z90.49 Acquired absence of other specified parts of digestive tract; Z90.710 Acquired absence of both cervix and uterus; Z96.653 Presence of artificial knee joint, bilateral
CPT/HCPCS: 80048; 80053; 82607; 82728; 82746; 83540; 83550; 85014; 85018; 85025; 85027; 85610; 85730; 86704; 86705; 86706; 86708; 86709; 86803; 86850; 86900; 86901; 87340; 96374; 96375; 96376; 99285

== ENCOUNTER → 2025-09-09 15:08 | Outpatient (REF) | payer OTHER, SELFPAY | LOC: RAD 15:08 | PROVIDERS: ATTENDING PHYSICIAN Internal Medicine | DX: M54.59 Other low back pain (principal) | CPT/HCPCS: 72100; 73502 ==